=== PATIENT | male | born 2000 | race American Indian/Alaskan Native ===

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

== ENCOUNTER 2024-09-23 00:17 | Emergency (ER) | payer SELFPAY ==
[2024-09-23 02:40] VITALS: BP 132/84; PULSE 94
[2024-09-23] MEDS: Cephalexin 500 MG Cap PO ONE (03:21)
[2024-09-23] MEDS: Diphtheria,Pertussis(Acell),Tetanus Vaccine 0.5 ML Syringe IM ONE (03:21)
== END 2024-09-23 03:41 | disposition home or self-care (01) ==
LOC: DL.ED 00:17
DX: S92.425B Nondisplaced fracture of distal phalanx of left great toe, initial encounter for open fracture (principal); Z23 Encounter for immunization; X58.XXXA Exposure to other specified factors, initial encounter
CPT/HCPCS: 73630-LT; 90471; 90715; 99283; 99284-25; A9270-GY